=== PATIENT | female | born 1975 | race Caucasian/White ===

== ENCOUNTER 2017-09-28 23:40 | Emergency (ER) | payer OTHER ==
[2017-09-29] MEDS: IBUPROFEN 600 MG TAB PO (02:19)
[2017-09-29] MEDS: DIPHTH/TET/ACEL PERTUSS (ADULT) 0.5 ML VIAL IM* (02:20)
[2017-09-29] MEDS: CLINDAMYCIN 600 MG INJ IM (02:24)
== END 2017-09-29 03:16 | disposition home or self-care (01) ==
LOC: FTE 23:40
DX: L03.116 Cellulitis of left lower limb (principal); L03.115 Cellulitis of right lower limb; L02.415 Cutaneous abscess of right lower limb; L02.416 Cutaneous abscess of left lower limb; Z23 Encounter for immunization
CPT/HCPCS: 90471; 90715; 96372; 99284-25

== ENCOUNTER 2017-10-02 11:34 | Emergency (ER) | payer OTHER | END 2017-10-02 14:30 | disposition home or self-care (01) | LOC: FTE 11:34 | DX: L53.9 Erythematous condition, unspecified (principal) | CPT/HCPCS: 73610; 99283-25 ==